=== PATIENT | female | born 1990 | race Caucasian/White ===

== ENCOUNTER 2023-09-30 15:43 | Observation (INO) | payer OTHER, SELFPAY ==
[2023-09-30 15:48] VITALS: BP 124/72; BMI 27.5
[2023-09-30 17:10] LABS: Hematocrit 32.7 % (37.0-47.0); Hemoglobin 11.4 g/dL (12.0-16.0); Mean Corp Hgb Conc. 34.9 g/dL (33.0-37.0); Mean Corpuscular Hgb 30.8 pg (27.0-31.0); Mean Corpuscular Volume 88.4 fL (81.0-99.0); Mean Platelet Volume 9.6 fL (7.4-10.4); Platelet Count 184 10^3/uL (130-400); Red Cell Dist. Width 12.2 % (11.5-14.5); White Blood Cell Count 8.2 10^3/uL (4.8-10.8)
[2023-09-30 17:12] LABS: Urine Albumin Negative (Neg - Trace); Urine Bilirubin Negative (Negative); Urine Character Clear (Clear); Urine Color Yellow; Urine Glucose Negative (Negative); Urine Ketone Negative (Negative); Urine Leukocyte Negative (Negative); Urine Nitrite Negative (Negative); Urine Occult Blood Negative (Negative); Urine Specific Gravity 1.015 (<1.030); Urine Urobilinogen Negative (Neg - 1+); Urine pH 6.5 (5.0-9.0)
== END 2023-09-30 17:57 | disposition home or self-care (01) ==
LOC: LDRP 15:43
PROVIDERS: ADMITTING PHYSICIAN Obstetrics & Gynecology
DX: O47.03 False labor before 37 completed weeks of gestation, third trimester (principal); Z3A.31 31 weeks gestation of pregnancy; R10.9 Unspecified abdominal pain; Z88.8 Allergy status to other drugs, medicaments and biological substances; J45.909 Unspecified asthma, uncomplicated; F41.9 Anxiety disorder, unspecified; Z86.16 Personal history of COVID-19
CPT/HCPCS: 81003; 85027; G0378

== ENCOUNTER 2023-10-25 08:37 | Observation (INO) | payer OTHER, SELFPAY ==
[2023-10-25 16:15] LABS: % Basophils 0.5 % (0-2); % Eosinophils 0.6 % (0-6); % Immature Granulocytes 2.9 % (0-0.5); % Lymphocytes 11.2 % (20.5-51.1); % Monocytes 9.1 % (1.7-9.3); % Neutrophils 75.7 % (42.2-75.2); Absolute Eosinophils 0.1 10^3/uL (0-0.7); Absolute Immature Granulocytes 0.2 10^3/uL (0-0.05); Absolute Lymphocytes 0.9 10^3/uL (1.2-3.4); Absolute Monocytes 0.7 10^3/uL (0.1-0.6); Absolute Neutrophils 6.2 10^3/uL (1.4-6.5); Hematocrit 34.2 % (37.0-47.0); Hemoglobin 11.4 g/dL (12.0-16.0); Mean Corp Hgb Conc. 33.3 g/dL (33.0-37.0); Mean Platelet Volume 9.6 fL (7.4-10.4); Nucleated Red Blood Cells % 0 %; Platelet Count 155 10^3/uL (130-400); Red Cell Dist. Width 12.8 % (11.5-14.5); White Blood Cell Count 8.2 10^3/uL (4.8-10.8)
[2023-10-25 16:32] LABS: ALT (SGPT) 13 U/L (0-35); AST (SGOT) 20 U/L (14-36); Albumin 2.9 g/dl (3.5-5.0); Alkaline Phosphatase 116 U/L (38-126); Blood Urea Nitrogen 7 mg/dl (7-17); Calcium 8.6 mg/dl (8.4-10.2); Carbon Dioxide 26 mmol/L (22-30); Chloride 105 mmol/L (98-107); Glucose 111 mg/dl (70-99); Potassium 3.9 mmol/L (3.5-5.1); Sodium 135 mmol/L (135-145); Total Bilirubin 0.5 mg/dl (0.2-1.3); Total Protein 5.7 g/dl (6.3-8.2); eGFR > 60.00
[2023-10-25 17:31] LABS: Urine Albumin Negative (Neg - Trace); Urine Bilirubin Negative (Negative); Urine Character Slightly Cloudy (Clear); Urine Color Yellow; Urine Glucose Negative (Negative); Urine Ketone Negative (Negative); Urine Leukocyte Trace (Negative); Urine Nitrite Negative (Negative); Urine Occult Blood Negative (Negative); Urine Specific Gravity 1.015 (<1.030); Urine Urobilinogen Negative (Neg - 1+)
[2023-10-25 17:46] LABS: Protein/creatinine Ratio 0.1; Urine Protein 8 mg/dl
[2023-10-25 17:55] LABS: Urine Amorphous Seen; Urine Bacteria Many (Negative); Urine Red Blood Cell 0-2 /HPF (0-2)
== END 2023-10-25 17:30 | disposition home or self-care (01) ==
LOC: PNTC-IN 08:37
PROVIDERS: Obstetrics & Gynecology; ADMITTING PHYSICIAN Obstetrics & Gynecology
DX: Z03.79 Encounter for other suspected maternal and fetal conditions ruled out (principal)
CPT/HCPCS: 59025; 80053; 81003; 81015; 82570; 84156; 85025; G0378

== ENCOUNTER 2023-11-18 16:04 | Observation (INO) | payer OTHER, SELFPAY ==
[2023-11-18 16:09] VITALS: BP 116/71; BMI 28.7
== END 2023-11-18 17:13 | disposition home or self-care (01) ==
LOC: LDRP 16:04
PROVIDERS: ADMITTING PHYSICIAN Obstetrics & Gynecology
DX: O36.8130 Decreased fetal movements, third trimester, not applicable or unspecified (principal); Z3A.38 38 weeks gestation of pregnancy
CPT/HCPCS: G0378

== ENCOUNTER 2023-11-22 07:35 | Inpatient (IN) | payer OTHER, SELFPAY ==
[2023-11-22 07:44] VITALS: BP 112/71; BMI 28.7
[2023-11-22] MEDS: ANCEF 10 IV (08:16)
[2023-11-22] MEDS: TYLENOL 1000 MG PO (08:16)
[2023-11-22] MEDS: BICITRA 30 ML PO (08:16)
[2023-11-22] MEDS: LR 1000 IV (08:18)
[2023-11-22 08:20] LABS: Hematocrit 35.1 % (37.0-47.0); Hemoglobin 12.1 g/dL (12.0-16.0); Mean Corp Hgb Conc. 34.5 g/dL (33.0-37.0); Mean Corpuscular Volume 86.9 fL (81.0-99.0); Mean Platelet Volume 9.6 fL (7.4-10.4); Platelet Count 165 10^3/uL (130-400); Red Blood Cell Count 4.04 10^6/uL (4.20-5.40); Red Cell Dist. Width 12.9 % (11.5-14.5); White Blood Cell Count 6.9 10^3/uL (4.8-10.8)
--- NOTE | 2023-11-22 09:01 | W.SUR.PREOP ---
Pre-Operative Surgical Note
-
I have examined this patient prior to the performance of the scheduled procedure.
The patient's condition is unchanged from the time of the current History and
Physical and the patient is able to undergo the scheduled procedure.
--- NOTE | 2023-11-22 10:52 | W.IMMPOSTOP ---
Surgical Immed Post Op Note
-
Primary Surgeon: Kelli Soriano DO
Assisting Surgeon: Navya Vincent, animal laboratory technician
Pre-op Diagnosis: IUP at 39+1wks, history of prior
Post-op Diagnosis: s/p ERLTCS, right ovarian cyst
Procedure Performed: ERLTCS
Anesthesia Type: spinal
Specimen / Cultures: none
Estimated Blood Loss: 470ml (QBL)
Complications: none
Operative Findings: normal appearing uterus, b/l tubes and left ovary; right ovary with 4cm benign appearing cyst; minimal intraperitoneal adhesions; cephalic female in the ROT position, no nuchal cord, clear amniotic fluid; Female
weighing 7lbs 8oz, Apgars 8/9.
DO Johnie
[2023-11-22] MEDS: TORADOL 15 MG IV ×2 (16:45→23:03)
[2023-11-22] MEDS: TYLENOL 650 MG PO (20:03)
--- NOTE | 2023-11-23 03:49 | DOWNTIME ---
There was a [employer] Client Brush Clearer Surveying Downtime on 11/23/2023 from 0100 to 11/23/2023 at 0322. Downtime documentation of patient's care, including medication administrations, has been reconciled in the electronic record per guidelines. Refer to the
patient's paper chart under the miscellaneous tab to see printed paper medication records and downtime forms.
[2023-11-23] MEDS: ROXICODONE 5 MG PO ×3 (04:08→22:07)
[2023-11-23] MEDS: TORADOL 15 MG IV (04:56)
[2023-11-23 05:46] LABS: Hematocrit 36.1 % (37.0-47.0); Hemoglobin 11.9 g/dL (12.0-16.0); Mean Corpuscular Hgb 29.6 pg (27.0-31.0); Mean Corpuscular Volume 89.8 fL (81.0-99.0); Mean Platelet Volume 9.7 fL (7.4-10.4); Platelet Count 189 10^3/uL (130-400); Red Blood Cell Count 4.02 10^6/uL (4.20-5.40); Red Cell Dist. Width 12.9 % (11.5-14.5); White Blood Cell Count 12.1 10^3/uL (4.8-10.8)
--- NOTE | 2023-11-23 07:52 | W.PN.ANS.POP ---
Anesthesia Post Operative
- Anesthesia Post Op Note
Vital Signs Stable-See Nursing Note: Yes
Airway Patent: Yes
Adequate Pain Control: Yes
Change in Mental Status: No
Current Postoperative Nausea & Vomiting: No
Anesthesia Complications: No
General Anesthetic Recall: No
Unplanned Admission: No
Post Op Hydration Adequate: Yes
[2023-11-23] MEDS: MYLICON 80 MG PO ×2 (11:13→17:41)
[2023-11-23] MEDS: MOTRIN 600 MG PO ×3 (11:13→23:43)
[2023-11-23] MEDS: PRENATAL PLUS 1 TABLET PO (11:13)
[2023-11-23] MEDS: TYLENOL 650 MG PO ×2 (17:41→23:43)
[2023-11-24] MEDS: TYLENOL 650 MG PO ×2 (05:33→10:34)
[2023-11-24] MEDS: MOTRIN 600 MG PO ×3 (05:33→15:30)
[2023-11-24] MEDS: PRENATAL PLUS 1 TABLET PO (10:34)
[2023-11-24] MEDS: SENOKOT-S 1 TABLET PO (10:34)
[2023-11-24] MEDS: ROXICODONE 5 MG PO ×2 (11:28→15:29)
--- NOTE | 2023-11-24 14:09 | W.DS.TRANS ---
DC Summary - [employer]
-
Discharge Instructions:
Discharge Diagnosis/Procedures delivered vaginally
Diet Regular
Activity No strenuous activity
Driving Restrictions As prior to admission
Bathing Restrictions OK to Shower
Instructions:
Stand-Alone Forms: LDRP Delivery
Changes to Home Medications: No
Discharge Medications:
DC Medications w/original date entered in Client Outlook
prenat.vits,yana,tug-ozzb-fvjlb 1 tab PO DAILY Supplement 09/15/23
acetaminophen 325 mg tablet 650 mg (2 x 325 mg) PO Q4HPRN PRN mild pain #0 tabs 11/24/23
ibuprofen 600 mg tablet 600 mg PO Q6HPRN PRN cramps #0 tabs 11/24/23
oxycodone 5 mg tablet 5 mg PO Q6H PRN severe pain #10 tabs 11/24/23
Home Medication Changes
Pending Results: No
Total time spent discharging patient (in min): 25
[2023-11-25 16:53] LABS: Syphilis/T. pallidum Ab Reflex Negative (Negative)
== END 2023-11-24 15:54 | disposition home or self-care (01) | DRG 788 ==
LOC: LDRP 07:35
PROVIDERS: ADMITTING PHYSICIAN Obstetrics & Gynecology
PROC: 10D00Z1 Extraction of Products of Conception, Low, Open Approach (ICD-10-PCS; 2023-11-22)
PROC: 6A550ZT Pheresis of Cord Blood Stem Cells, Single (ICD-10-PCS; 2023-11-22)
DX: O34.211 Maternal care for low transverse scar from previous cesarean delivery (principal); Z3A.39 39 weeks gestation of pregnancy; Z37.0 Single live birth; N83.201 Unspecified ovarian cyst, right side; O34.83 Maternal care for other abnormalities of pelvic organs, third trimester; O99.344 Other mental disorders complicating childbirth; F90.9 Attention-deficit hyperactivity disorder, unspecified type; Z81.0 Family history of intellectual disabilities; Z88.8 Allergy status to other drugs, medicaments and biological substances; O99.52 Diseases of the respiratory system complicating childbirth; J45.909 Unspecified asthma, uncomplicated; F41.9 Anxiety disorder, unspecified; Z86.16 Personal history of COVID-19
CPT/HCPCS: 85027; 86780; 86850; 86900; 86901

== ENCOUNTER → 2024-02-09 09:30 | Outpatient (REF) | payer OTHER, SELFPAY | LOC: RAD 09:30 | PROVIDERS: ATTENDING PHYSICIAN Obstetrics & Gynecology; FAMILY PHYSICIAN Family Medicine | DX: N83.209 Unspecified ovarian cyst, unspecified side (principal) | CPT/HCPCS: 76830; 76856 ==

== ENCOUNTER → 2024-02-29 08:12 | Outpatient (REF) | payer OTHER, SELFPAY | LOC: MRI 08:12 | PROVIDERS: ATTENDING PHYSICIAN Obstetrics & Gynecology; FAMILY PHYSICIAN Family Medicine | DX: R93.89 Abnormal findings on diagnostic imaging of other specified body structures (principal) | CPT/HCPCS: 72197; A9575 ==

== ENCOUNTER → 2024-08-29 13:28 | Outpatient (REF) | payer OTHER, SELFPAY | LOC: RAD 13:28 | PROVIDERS: ATTENDING PHYSICIAN Emergency Medicine | DX: J06.9 Acute upper respiratory infection, unspecified (principal) | CPT/HCPCS: 71046 ==

== ENCOUNTER → 2025-07-29 08:48 | Outpatient (REF) | payer OTHER, SELFPAY | LOC: HWRCS 08:48 | PROVIDERS: ATTENDING PHYSICIAN Family Medicine | DX: R01.1 Cardiac murmur, unspecified (principal) | CPT/HCPCS: 93306 ==